=== PATIENT | male | born 1980 | race Caucasian/White ===

== ENCOUNTER 2020-01-17 11:18 | Emergency (ER) | payer OTHER ==
[~2020-01-17] VITALS: Ht 172.7 cm; Wt 88.9 kg
== END 2020-01-17 14:19 | disposition home or self-care (01) ==
LOC: ER 11:18
DX: S60.221A Contusion of right hand, initial encounter (principal); W18.09XA Striking against other object with subsequent fall, initial encounter; Y93.89 Activity, other specified; Y92.69 Other specified industrial and construction area as the place of occurrence of the external cause; Y99.8 Other external cause status

== ENCOUNTER 2021-08-20 12:55 | Emergency (ER) | payer OTHER ==
[~2021-08-20] VITALS: Ht 172.7 cm; Wt 90.3 kg
[2021-08-20] MEDS ORDERED: SERTRALINE HCL50 MG PO (13:47)
== END 2021-08-20 15:31 | disposition home or self-care (01) ==
LOC: ER 12:55
DX: S61.452A Open bite of left hand, initial encounter (principal); W54.0XXA Bitten by dog, initial encounter; Y93.89 Activity, other specified; Y92.89 Other specified places as the place of occurrence of the external cause